=== PATIENT | female | born 1965 | race Caucasian/White ===

== ENCOUNTER 2021-09-06 15:06 | Emergency (ER) | payer OTHER ==
[~2021-09-06] VITALS: Ht 162.6 cm; Wt 79.4 kg
[2021-09-06] MEDS ORDERED: NAPR-1192 PO (15:26)
[2021-09-06] MEDS ORDERED: LOSA25TA27 PO (15:26)
--- NOTE | 2021-09-06 15:40 | NUR ---
56 yrs female c/o chest pain and palpation and dizzness with walking EKG done examine by DR. BRYAN blood drow by lab
[2021-09-06] MEDS ORDERED: ASPIRIN 325 MG TABLET PO ONE (15:45)
--- NOTE | 2021-09-06 16:00 | NUR ---
NO CHEST PAIN serting at this time seen by DR mckeon blood drow by lab tach .ASA 325 MG PO GIVEN
[2021-09-06 16:05] LABS: HEMATOCRIT 37.9 % (31.2-41.9); MEAN CORPUSCULAR HEMOGLOBIN 28.9 uug (24.7-32.8); PLATELET COUNT (AUTO) 250 K/uL (179-408)
[2021-09-06] MEDS ORDERED: ASPIRIN 325 MG TABLET ONE (16:07)
[2021-09-06 16:18] LABS: CREATININE 0.9 mg/dL (0.6-1.3); POTASSIUM 3.6 mmol/L (3.5-5.1)
[2021-09-06 16:32] LABS: BILIRUBIN,DIRECT 0.1 mg/dL (0.0-0.2); BILIRUBIN,TOTAL 0.5 mg/dL (0.2-1.0); TOTAL PROTEIN, SERUM 6.9 g/dL (6.4-8.2)
--- NOTE | 2021-09-06 17:17 | NUR ---
WATING FOR LAB RESULT NO CHEST PAIN
--- NOTE | 2021-09-06 18:00 | NUR ---
plan of care transfer to [facility] swab sent to lab
--- NOTE | 2021-09-06 19:00 | NUR ---
Jeannette domingo of [employer] fax fax
--- NOTE | 2021-09-06 19:35 | NUR ---
hand off to BRIAN. ZACK PERALES PLAQN TO TRANSFER TO [facility]
--- NOTE | 2021-09-06 20:38 | NUR ---
[facility] [place] [facility] [place] 20 [place] given.
--- NOTE | 2021-09-06 21:26 | NUR ---
Summary of care Received report from Mary Ellen PERALES A,A O x4 ambulatory BRP x 2 tolerated well. NSR # [id number] dressing dry intact. 1 x cardiac dinner tray tolerated well 100% fluids 500cc h2o.Received room at [facility] room # 501. [facility] unit [address] bedside for
[2021-09-06 21:56] VITALS: BP 138/88
== END 2021-09-06 21:58 | disposition short-term general hospital (02) ==
LOC: ER 15:22
DX: I20.0 Unstable angina (principal); I10 Essential (primary) hypertension; R73.03 Prediabetes; Q60.0 Renal agenesis, unilateral; R53.83 Other fatigue; Z20.822 Contact with and (suspected) exposure to COVID-19
CPT/HCPCS: 36415; 70030-TC; 71045; 85025; 85730; 93005; A4663